=== PATIENT | female | born 1950 | race Caucasian/White ===

== ENCOUNTER 2021-11-30 09:39 | Inpatient (IN) ==
[2021-11-30] MEDS ORDERED: IOPAMIDOL 100 ML BOTTLE IV ONE (09:40)
[2021-11-30] MEDS ORDERED: ONDANSETRON 4 MG/2 ML VIAL IV ONE ×2 (10:03→11:07)
[2021-11-30] MEDS ORDERED: morphine 4 MG/ML VIAL IV ONE ×3 (10:03→13:45)
--- NOTE | 2021-11-30 10:03 | Emergency Department Note ---
HPI General Chief complaint: Abdominal Pain Stated complaint: pain in left upper abd, recent dx w/ cancer. Time Seen by Provider: 11/30/21 10:03 Source: patient Mode of arrival: ambulatory Limitations: no limitations History of Present Illness HPI Narrative: 71-year-old female with past medical history of COPD presenting with dyspnea and abdominal pain. Patient was seen in the ED yesterday after she had a few days of nonproductive cough, fatigue, and shortness of breath. She had a chest x-ray which showed possible hilar right lung mass but no significant infiltrate. COVID and influenza test were negative. Vital signs are stable and she was discharged home. She returns today because she has been having some intermittent abdominal pain in the left upper quadrant that occasionally radiates into her right upper quadrant. Patient does have a history of cholecystectomy and states she was hospitalized after the cholecystectomy because she had a subsequent bile leak. Denies vomiting, fever, dysuria, he maturia, or melena. Denies sick contacts or other complaints. Related Data Home Medications Medication Instructions Recorded Confirmed omeprazole magnesium 20 mg 20 mg PO QDAY tab 07/07/17 11/30/21 tablet,delayed release (Prilosec OTC) melatonin 3 mg PO HS 10/03/21 11/30/21 omega-3 fatty acids [Fish Oil] 1 tab PO QDAY 10/03/21 11/30/21 Previous Rx's Medication Instructions Recorded albuterol sulfate 90 mcg/actuation 2 puff INHALATION .q4-6h PRN #8.5 g 04/27/21 aerosol inhaler (ProAir HFA) benzonatate 100 mg capsule 100 mg PO BID PRN #15 cap 11/29/21 Allergies Allergy/AdvReac Type Severity Reaction Status Date / Time atorvastatin [From Lipitor] AdvReac Mild Muscle Pain Verified 11/30/21 09:43 clonidine [From Catapres] AdvReac Mild Other Verified 11/30/21 09:43 Medroxyprogesterone AdvReac Mild Gastrointestinal Verified 11/30/21 09:43 [From Provera] Upset Review of Systems ROS ROS Narrative: Narrative: Constitutional: Reports chills; Denies fever Eyes: Denies vision change ENT ED: Denies throat pain Cardiovascular: Denies chest pain or palpitations Respiratory: Reports shortness of breath and cough Gastrointestinal: Reports abdominal pain and nausea; Denies vomiting, diarrhea or melena Genitourinary: Denies dysuria or hematuria Musculoskeletal: Denies back pain Integumentary: Denies rash or lesions Neurological: Denies headache Psychiatric: Denies anxiety Endocrine: Reports fatigue Hematological/Lymphatic: Denies easy bruising PFSH Narrative Patient History Narrative: Narrative: Medical/Surgical/Family History All Active Problems (Updated 11/30/21 @ 15:40 by Gerardo Forrester MD) Lactic acidosis (Acute) Emphysema lung (Acute) Acute hypoxemic respiratory failure (Acute) Right lower lobe pneumonia (Acute) Sepsis (Acute) Mass of right lung (Acute) Pneumonia (Acute) Hypoxia (Acute) Viral sinusitis (Acute) Lung nodule < 6cm on CT (Acute) COPD (chronic obstructive pulmonary disease) (Acute) URI (upper respiratory infection) (Acute) Primary insomnia (Acute) Raynauds phenomenon (Acute) GERD (gastroesophageal reflux disease) (Acute) Cellulitis (Acute) Costalchondritis (Acute) Community acquired pneumonia (Acute) UTI (urinary tract infection) (Acute) Bronchitis, acute (Acute) Chronic leukopenia (Chronic) Influenza (Acute) Imbalance (Acute) Encounter for Health Maintenance Examination in Adult (Chronic) History of laparoscopy (Acute 09/30/83) History of esophagogastroduodenoscopy (Acute 10/03/12) History of ectopic (Acute) History of colonoscopy (Acute 10/03/12) History of cholecystectomy (Acute 04/29/00) Sjogren's syndrome (Chronic) Multiple closed 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 10/03/12 EGD--Dr. Bell--Stomach biopsy showing 2 fundic gland polyps; chronic mild gastritis; no helicobacter organisms identified. Encounter for Health Maintenance Examination in Adult Gilbert's syndrome Chronically mildly elevated bilirubin, ,probably secondary to Gilbert's. History of colonic polyps (05/07/10) 05/07/10--hyperplastic polyp; -Dr. Bell (10-year sequence) Hyperlipidemia 03/16/10--Red Yeast Rice trial--discontinued 09/01/10 --wishes to avoid statins Influenza Labyrinthine disorder Episode of labyrinthine vertigo lasting several weeks. Leukocytopenia Chronic leukopenia w/normal cell lines otherwise. Normal differential. Distant past negative bone marrow. Low back pain (05/21/13) Lung disease Chest x-ray 04/23 ER right hilar mass; F/u chest x-ray 05/24 resolved Multiple closed pelvic fractures with disruption of pelvic havasupai 02/20 Pelvic fracture, CT 02/20. Pin removed 07/24--Dr. Burciaga. Bilateral sacral fractures w/sacral screw on the right; superior & inferior rami fractures. Postmenopausal related mood disorder Mild menopausal sxs. D&C & cervical biopsy--squamous metaplasia & condyloma--Dr. Adair (last mammogram 02/2010) Sjogren's syndrome 12/20 Positive Sjogren's antibody 12/20--on Restasis for dry eyes & trying to do good oral care; no other secondary features of Sjogren's. Upper respiratory infection w/ bronchitis Upper respiratory tract infection w/ bronchitis Surgical History History of cholecystectomy (04/29/00) 04/29/00--laparoscopic cholecystectomy; developed bile leak--treated twice, then ERCP w/papillotomy & stent placed; developed bile peritonitis & hospitalization X 1 month. ERCP 04/04/01--some mild residual 2 cm long stenosis of common hepatic duct; some mild fusiform ectasia of several intrahepatic ducts; no filling defects. ERCP 07/06/01--no evidence of recurrent common hepatic duct stricture. Abdominal US 02/22/03--normal. Abdominal CT 05/27--dil intrahepatic ducts,fatty liver History of colonoscopy (10/03/12) nonulcer dyspepsia History of ectopic Removal 1976 Laparotomy--ectopic History of esophagogastroduodenoscopy (10/03/12) 10/03/12 EGD--Dr. Bell--Stomach biopsy showing 2 fundic gland polyps; chronic mild gastritis; no helicobacter organisms identified. History of laparoscopy (09/30/83) Laparoscopy--lysis of right ovarian adhesions--Dr. Adair Family History Mother Heart failure, Onset Age: 80 Cerebrovascular accident, Onset Age: 80 Social History Smoking Status: Never smoker Alcohol Intake Frequency: holiday/special occasion only Substance Use: does not use Exam Narrative Narrative: Narrative: General Limitations: no limitations General appearance: Present alert and other (appears uncomfortable) Head Head: Present atraumatic and normocephalic Eye Eye: Present normal appearance, PERRL and EOMI; Absent scleral icterus or conjunctival injection ENT ENT: Present mucous membranes moist Neck Neck: Present normal inspection, full ROM and trachea midline; Absent meningismus or lymphadenopathy Chest Chest: Present symmetric chest wall rise Respiratory Respiratory: Present respiratory distress (mild) and other (Coarse breath sounds bilaterally); Absent wheezes, stridor, accessory muscle use or prolonged expiratory phase Cardiovascular Cardiovascular: Present normal rhythm and tachycardia; Absent systolic murmur or diastolic murmur Adbominal Abdominal: Present soft and tenderness (mild LUQ TTP); Absent distention, guard ing, rebound, rigidity, organomegaly or mass Extremities Extremities: Present normal inspection; Absent pretibial edema Back Back: Absent CVA tenderness (R), CVA tenderness (L) or spinous process tender ness Neurological Neurological: Present alert, oriented X3 and CN II-XII intact; Absent motor sensory deficit Psychiatric Psychiatric: Present normal affect and normal mood Skin Skin: Present warm (WNL) and dry Course Vital Signs Vital signs: Vital Signs Temperature 101.2 F H 11/30/21 09:40 Pulse Rate 117 H 11/30/21 09:40 Respiratory Rate 28 H 11/30/21 09:40 Blood Pressure 153/79 11/30/21 09:40 Pulse Oximetry (%) 94 11/30/21 09:40 Temperature 99.8 F H 11/30/21 13:41 Pulse Rate 78 11/30/21 15:30 Respiratory Rate 24 H 11/30/21 15:30 Blood Pressure 118/73 11/30/21 15:30 Pulse Oximetry (%) 97 05/16/22 15:30 MDM MDM Narrative Medical decision making narrative: 71-year-old female presenting with abdominal pain and dyspnea. On arrival to the ED she was tachycardic, febrile, and hypoxic to 88% on room air. She was placed on O2 via nasal cannula and a 30 mg/kg normal saline bolus was ordered. Concern for sepsis. No hypotension. Lactate mildly elevated at 2.8. She was given morphine, Zofran, and Tylenol with improvement in her abdominal pain. Blood cultures sent and she was given Zosyn 3.375g and vancomycin 1g IV for presumed pneumonia. CT abdomen shows patchy infiltrates in both lower lobes of the lung as well as known cholecystectomy changes with dilation of the intrahepatic, common hepatic, and common bile ducts. CT chest obtained which shows moderate consolidated alveolar infiltrates in the right upper lobe, right middle lobe, right lower lobe as well as the left upper lobe and left lower lobe. Bilateral hilar and mediastinal lymph nodes present. Given these findings and her hypoxia, will admit for pneumonia with antibiotic treatment and further management. Patient endorsed to Dr. Forrester for admission. Lab Data Lab results reviewed: Yes I reviewed the patient's lab results. Result diagrams: 11/30/21 10:00 11/30/21 10:19 Labs: Lab Results 11/30/21 11/30/21 11/30/21 Range/Units 10:00 10:02 10:03 WBC 9.8 (4.5-11.0) K/mcL RBC 4.87 (3.59-5.38) M/mcL Hgb 14.5 (11.2-15.7) g/dL Hct 43.9 (34.1-44.9) % POC Hct 47.0 (36-48) MCV 90.1 (80.0-100.0) fL MCH 29.8 (26.0-34.0) pg MCHC 33.0 (31.0-36.0) g/dL RDW 13.1 (11.5-14.5) % Plt Count 212 (140-440) K/mcL MPV 10.6 H (7.4-10.4) fL Seg Neutrophils % 72 (38-78) % Band Neutrophils % 6 (0-10) % Lymphocytes % 13 L (15-49) % Monocytes % (Manual) 9 (1-12) % Platelet Estimate Normal (Normal) RBC Morphology Normal (Normal) POC VBG pH 7.37 (7.32-7.42) POC VBG pCO2 at Temp 42.3 (41-51) POC VBG pO2 32 (25-40) POC VBG HCO3 24.6 (24-28) POC VBG Total CO2 26.0 (25-29) POC Venous O2 Sat 60.0 (40-70) POC VBG Base Excess -1.0 (-2-2) VBG Lactic Acid (0.5-2.0) mmol/L POC Sodium 130 L (133-145) Sodium (133-145) mmol/L POC Potassium 3.8 (3.3-5.1) Potassium (3.3-5.1) mmol/L POC Chloride 96 (96-108) Chloride (96-108) mmol/L Carbon Dioxide (22-30) mmol/L POC Total CO2 24.0 (22-30) Anion Gap (8.0-16.0) POC BUN 19 (6-20) BUN (8-23) mg/dL Creatinine (0.6-1.1) mg/dL POC Creatinine 0.9 (0.6-1.2) GFR Calculation Glucose (70-105) mg/dL POC Glucose 110 H (70-105) POC Venous Lactate 2.8 H (0.5-2) Calcium (8.6-10.4) mg/dL POC WB Ioniz Calcium 1.14 L (1.16-1.32) Total Bilirubin (0.1-1.0) mg/dL AST (<32) U/L ALT (<40) U/L Alkaline Phosphatase (39-117) U/L Total Protein (5.9-8.4) gm/dL Albumin (3.2-5.2) gm/dL Globulin (2.2-3.7) gm/dL Albumin/Globulin Ratio (1.0-2.3) Urine Color Urine Appearance (Clear) Urine pH (5.0-9.0) Urine Protein (Negative) mg/dL Urine Glucose (UA) (Negative) mg/dL Urine Ketones (Negative) mg/dL Urine Occult Blood (Negative) mg/dL Urine Nitrate (Negative) Urine Bilirubin (Negative) mg/dL Urine Urobilinogen mg/dL Ur Leukocyte Esterase (Negative) /uL Urine RBC (0-3) /hpf Urine WBC (0-4) /hpf Ur Squamous Epith Cells (0-4) /hpf Urine Bacteria (0) /hpf Urine Mucus (None) /hpf Ur Culture Indicated? 11/30/21 11/30/21 Range/Units 10:19 12:49 WBC (4.5-11.0) K/mcL RBC (3.59-5.38) M/mcL Hgb (11.2-15.7) g/dL Hct (34.1-44.9) % POC Hct (36-48) MCV (80.0-100.0) fL MCH (26.0-34.0) pg MCHC (31.0-36.0) g/dL RDW (11.5-14.5) % Plt Count (140-440) K/mcL MPV (7.4-10.4) fL Seg Neutrophils % (38-78) % Band Neutrophils % (0-10) % Lymphocytes % (15-49) % Monocytes % (Manual) (1-12) % Platelet Estimate (Normal) RBC Morphology (Normal) POC VBG pH (7.32-7.42) POC VBG pCO2 at Temp (41-51) POC VBG pO2 (25-40) POC VBG HCO3 (24-28) POC VBG Total CO2 (25-29) POC Venous O2 Sat (40-70) POC VBG Base Excess (-2-2) VBG Lactic Acid 1.7 (0.5-2.0) mmol/L POC Sodium (133-145) Sodium 129 L (133-145) mmol/L POC Potassium (3.3-5.1) Potassium 3.7 (3.3-5.1) mmol/L POC Chloride (96-108) Chloride 92 L (96-108) mmol/L Carbon Dioxide 20 L (22-30) mmol/L POC Total CO2 (22-30) Anion Gap 17.0 H (8.0-16.0) POC BUN (6-20) BUN 16 (8-23) mg/dL Creatinine 0.9 (0.6-1.1) mg/dL POC Creatinine (0.6-1.2) GFR Calculation 63 Glucose 99 (70-105) mg/dL POC Glucose (70-105) POC Venous Lactate (0.5-2) Calcium 9.9 (8.6-10.4) mg/dL POC WB Ioniz Calcium (1.16-1.32) Total Bilirubin 1.4 H (0.1-1.0) mg/dL AST 22 (<32) U/L ALT 15 (<40) U/L Alkaline Phosphatase 136 H (39-117) U/L Total Protein 8.5 H (5.9-8.4) gm/dL Albumin 3.8 (3.2-5.2) gm/dL Globulin 4.7 H (2.2-3.7) gm/dL Albumin/Globulin Ratio 0.8 L (1.0-2.3) Urine Color Yellow Urine Appearance Clear (Clear) Urine pH 6.0 (5.0-9.0) Urine Protein 30 A (Negative) mg/dL Urine Glucose (UA) Negative (Negative) mg/dL Urine Ketones 20 A (Negative) mg/dL Urine Occult Blood 0.03 (Negative) mg/dL Urine Nitrate Negative (Negative) Urine Bilirubin Negative (Negative) mg/dL Urine Urobilinogen Negative mg/dL Ur Leukocyte Esterase Negative (Negative) /uL Urine RBC 3 (0-3) /hpf Urine WBC 2 (0-4) /hpf Ur Squamous Epith Cells < 1 (0-4) /hpf Urine Bacteria None (0) /hpf Urine Mucus Few A (None) /hpf Ur Culture Indicated? No Radiology Data Radiology results reviewed: Yes I reviewed the patient's radiology results. Radiology results narrative: Ordering Physician:David Birch M.D. Date of Service:11/30/21 Procedure(s):CT abdomen pelvis w con CLINICAL INFORMATION: Left upper quadrant pain and fever COMPARISON: 05/22/2010 TECHNIQUE: 80 cc of Isovue-370 were injected intravenously, and 60 seconds later, 0.625 mm helical slices were obtained from the mid heart through the subtrochanteric regions. Following reconstruction, 2.5 mm sagittal, coronal and axial reformatted images were processed and reviewed at bone, lung and soft tissue windows. Five minutes later, 0.625 mm helical slices were obtained from the mid heart through the kidneys and viewed at soft tissue windows.The exam was performed using radiation dose optimization techniques including, but not limited to, automated exposure control, adjustment of the mA and/or kV according to patient size and use of iterative reconstruction technique. FINDINGS: The lung showed small right pleural effusion with moderate patchy infiltrate in the posterior right lower lobe. There is also a small patchy infiltrate in the posterior left lower lobe. All findings are new from the previous exam. The visualized heart is mildly enlarged. Abdominal images show mild fatty change within the liver. Gallbladder is surgically absent. There is moderate dilatation of the intrahepatic common hepatic and common bile ducts which has increased since the comparison exam 12 years ago. Common bile duct is 15 mm in diameter. Interestingly, there is a large number of intraductal calcifications have developed within the anterior segment right hepatic lobe ducts with atrophy in the adjacent hepatic parenchyma. Both kidneys, adrenal glands, spleen, pancreas and aorta, including aortic branches are normal in size configuration and attenuation without focal lesion. There is no free air, free fluid no adenopathy Pelvic images show urinary bladder is normal.Uterus is normal postmenopausal size-6 x 2.5 cm. There is moderate enlargement of the bilateral periuterine and paraovarian venous plexus with congestion both ovarian veins. The stomach, small bowel appendix region and large bowel are unremarkable. Moderate colonic stool noted. Bone windows show no focal osseous lesion. IMPRESSION: Moderate dilatation of the intrahepatic, common hepatic and common bile ducts which show only slight progression from the remote study 12 years ago. Patient likely has post cholecystectomy papillary stenosis. Multiple calcifications confined to the anterior segment right hepatic duct with associated atrophy in the adjacent soft tissues. This is likely stigmata of trauma or remote infection. Mucinous cholangiocarcinoma is possible, but less likely. Suggest gastroneurology referral for ERCP/papillotomy also a possibly tissue sampling of the anterior segment of the right hepatic lobe. Moderate colonic stool. Small right pleural effusion and moderate patchy infiltrate right lower lobe. Smaller patchy left lower lobe. Consider aspiration or infection. Marked enlargement of the paraovarian periuterine venous plexus. Patient is at risk for pelvic congestion syndrome. Please correlate with chronic or intermittent pelvic pain. Interpreted and Authenticated by: Gabo Huston 11/30/21 Ordering Physician:David Birch M.D. Date of Service:11/30/21 Procedure(s):CT chest wo [facility] CLINICAL INFORMATION: Hypoxia and fever COMPARISON: Chest CT 06/20/2019 TECHNIQUE: 0.625 mm axial slices were obtained from the lung apices through the bases without intravenous contrast. 2.5 mm Sagittal, coronal and axial reformatted images were processed and reviewed at bone, lung and soft tissue windows. 7 mm axial MIP images were also reconstructed to optimize pulmonary nodule detection.The exam was performed using radiation dose optimization techniques including, but not limited to, automated exposure control, adjustment of the mA and/or kV according to patient size and use of iterative reconstruction technique. FINDINGS: Pulmonary parenchymal windows show moderate consolidated alveolar infiltrates in the anterior and posterior segments of the right upper lobe and the right middle lobe. Moderate patchy infiltrate noted in the peripheral right lower lobe and smaller patchy infiltrates in the peripheral left lower lobe and posterior segment left upper lobe. Small right pleural effusion noted. Mediastinal windows show the heart is borderline enlarged with scattered calcific plaque seen in the coronary arteries. The noncontrasted thoracic aorta and pulmonary arteries are normal diameter. Mildly enlarged lymph nodes in the hilar and lower mediastinal region are new from the previous exam. Findings are compatible with benign reactive adenopathy related to infection. Multinodular adenomatous thyroid unchanged. Esophagus is grossly normal. Bone windows show mild chronic wedging midthoracic vertebral bodies. IMPRESSION: 1. Moderate consolidated alveolar infiltrates the anterior/ posterior segments of the right upper lobe and medial segment right middle lobe with moderate patchy infiltrate in the peripheral right lower lobe with smaller patchy infiltrate in the posterior left upper lobe and the peripheral left lower lobe. Small right pleural effusion noted. Findings most compatible with aspiration or infection. 2. Mildly enlarged lower mediastinal and bilateral hilar lymph nodes compatible benign reactive adenopathy related to infection. 3. Mild underlying centrilobular emphysema stable Interpreted and Authenticated by: Gabo Huston 11/30/21 Discharge Plan Patient/Caregiver Discharge Instructions Pt seen by [employer]/PA only: No Clinical Impression: Pneumonia, Hypoxia Patient Disposition: Xfer As Inpt ([facility] Condition: Fair Follow up with: Gabo El DO [Primary Care Provider] - Prescriptions: No Action omeprazole magnesium [Prilosec OTC] 20 mg tablet,delayed release (DR/EC) 20 mg PO QDAY 0RF albuterol sulfate [ProAir HFA] 90 mcg/actuation HFA aerosol inhaler 2 puff inhalation .q4-6h PRN (Reason: cough, shortness of breath, wheezing) Qty: 8.5 0RF Rx Instructions: administer with spacer melatonin 3 mg PO HS 0RF omega-3 fatty acids [Fish Oil] 1 tab PO QDAY 0RF benzonatate 100 mg capsule 100 mg PO BID PRN (Reason: cough) Qty: 15 0RF
[2021-11-30 10:07] LABS: POC Calcium, Ionized 1.14 (1.16-1.32); POC Creatinine 0.9 (0.6-1.2); POC Potassium 3.8 (3.3-5.1)
[2021-11-30] MEDS ORDERED: 0.9 % SODIUM CHLORIDE 900 ML IV ONE (10:20)
[2021-11-30] MEDS ORDERED: 0.9 % SODIUM CHLORIDE 1,000 ML IV ONE (10:21)
[2021-11-30] MEDS ORDERED: ACETAMINOPHEN 325 MG TABLET PO ONE (11:19)
[2021-11-30] MEDS ORDERED: PIPERACILLIN SODIUM/TAZOBACTAM 3.375 GM in DEXTROSE 5% IN WATER 50 ML IV ONE (11:19)
[2021-11-30] MEDS ORDERED: VANCOMYCIN 1,000 MG in 0.9 % SODIUM CHLORIDE 250 ML IV ONE (11:19)
[2021-11-30 11:23] LABS: Hematocrit 43.9 % (34.1-44.9); Hemoglobin 14.5 g/dL (11.2-15.7); Mean Cell Volume 90.1 fL (80.0-100.0); Mean Platelet Volume 10.6 fL (7.4-10.4); Platelet Count 212 K/mcL (140-440); RBC 4.87 M/mcL (3.59-5.38); Red Cell Distribution Width 13.1 % (11.5-14.5); WBC 9.8 K/mcL (4.5-11.0)
[2021-11-30 11:52] LABS: ALT/SGPT 15 U/L (<40); AST/SGOT 22 U/L (<32); Albumin 3.8 gm/dL (3.2-5.2); Albumin/Globulin Ratio 0.8 (1.0-2.3); Alkaline Phosphatase 136 U/L (39-117); Bilirubin,Total 1.4 mg/dL (0.1-1.0); Blood Urea Nitrogen 16 mg/dL (8-23); Calcium 9.9 mg/dL (8.6-10.4); Carbon Dioxide 20 mmol/L (22-30); Chloride 92 mmol/L (96-108); Globulin 4.7 gm/dL (2.2-3.7); Glomerular Filtration Rate 63; Glucose 99 mg/dL (70-105)
--- NOTE | 2021-11-30 12:02 | Cat Scan Report ---
CLINICAL INFORMATION: Left upper quadrant pain and fever COMPARISON: 05/22/2010 TECHNIQUE: 80 cc of Isovue-370 were injected intravenously, and 60 seconds later, 0.625 mm helical slices were obtained from the mid heart through the subtrochanteric regions. Following reconstruction, 2.5 mm sagittal, coronal and axial reformatted images were processed and reviewed at bone, lung and soft tissue windows. Five minutes later, 0.625 mm helical slices were obtained from the mid heart through the kidneys and viewed at soft tissue windows.The exam was performed using radiation dose optimization techniques including, but not limited to, automated exposure control, adjustment of the mA and/or kV according to patient size and use of iterative reconstruction technique. FINDINGS: The lung showed small right pleural effusion with moderate patchy infiltrate in the posterior right lower lobe. There is also a small patchy infiltrate in the posterior left lower lobe. All findings are new from the previous exam. The visualized heart is mildly enlarged. Abdominal images show mild fatty change within the liver. Gallbladder is surgically absent. There is moderate dilatation of the intrahepatic common hepatic and common bile ducts which has increased since the comparison exam 12 years ago. Common bile duct is 15 mm in diameter. Interestingly, there is a large number of intraductal calcifications have developed within the anterior segment right hepatic lobe ducts with atrophy in the adjacent hepatic parenchyma. Both kidneys, adrenal glands, spleen, pancreas and aorta, including aortic branches are normal in size configuration and attenuation without focal lesion. There is no free air, free fluid no adenopathy Pelvic images show urinary bladder is normal.Uterus is normal postmenopausal size-6 x 2.5 cm. There is moderate enlargement of the bilateral periuterine and paraovarian venous plexus with congestion both ovarian veins. The stomach, small bowel appendix region and large bowel are unremarkable. Moderate colonic stool noted. Bone windows show no focal osseous lesion. IMPRESSION: Moderate dilatation of the intrahepatic, common hepatic and common bile ducts which show only slight progression from the remote study 12 years ago. Patient likely has post cholecystectomy papillary stenosis. Multiple calcifications confined to the anterior segment right hepatic duct with associated atrophy in the adjacent soft tissues. This is likely stigmata of trauma or remote infection. Mucinous cholangiocarcinoma is possible, but less likely. Suggest gastroneurology referral for ERCP/papillotomy also a possibly tissue sampling of the anterior segment of the right hepatic lobe. Moderate colonic stool. Small right pleural effusion and moderate patchy infiltrate right lower lobe. Smaller patchy left lower lobe. Consider aspiration or infection. Marked enlargement of the paraovarian periuterine venous plexus. Patient is at risk for pelvic congestion syndrome. Please correlate with chronic or intermittent pelvic pain. Interpreted and Authenticated by: Gabo Huston 11/30/21
[2021-11-30 12:25] LABS: Band Neutrophils % 6 % (0-10); Lymphocytes % 13 % (15-49); Monocytes % (Manual) 9 % (1-12); Platelet Estimate NORMAL (Normal); RBC Morphology NORMAL (Normal); Segmented Neutrophils % 72 % (38-78)
[2021-11-30 14:08] LABS: Appearance,Urine CLEAR (Clear); Bilirubin,Urine Negative (Negative); Color,Urine YELLOW; Culture Indicated,Urine No; Glucose,Urine (UA) Negative (Negative); Ketones,Urine 20 mg/dL (Negative); Leukocyte Esterase,Urine Negative /uL (Negative); Mucus,Urine FEW /hpf; Nitrate,Urine Negative (Negative); Protein,Urine 30 mg/dL (Negative); Urine Blood 0.03 mg/dL (Negative); Urine RBC 3 /hpf (0-3); Urine Squamous Epithelial Cell < 1 /hpf (0-4); Urine WBC 2 /hpf (0-4); Urobilinogen,Urine Negative
[2021-11-30] MEDS ORDERED: oxyCODONE HCL 5 MG TABLET PO PRN (14:55)
[2021-11-30] MEDS ORDERED: ONDANSETRON 4 MG/2 ML VIAL IV PRN (14:55)
--- NOTE | 2021-11-30 15:02 | Cat Scan Report ---
CLINICAL INFORMATION: Hypoxia and fever COMPARISON: Chest CT 06/20/2019 TECHNIQUE: 0.625 mm axial slices were obtained from the lung apices through the bases without intravenous contrast. 2.5 mm Sagittal, coronal and axial reformatted images were processed and reviewed at bone, lung and soft tissue windows. 7 mm axial MIP images were also reconstructed to optimize pulmonary nodule detection.The exam was performed using radiation dose optimization techniques including, but not limited to, automated exposure control, adjustment of the mA and/or kV according to patient size and use of iterative reconstruction technique. FINDINGS: Pulmonary parenchymal windows show moderate consolidated alveolar infiltrates in the anterior and posterior segments of the right upper lobe and the right middle lobe. Moderate patchy infiltrate noted in the peripheral right lower lobe and smaller patchy infiltrates in the peripheral left lower lobe and posterior segment left upper lobe. Small right pleural effusion noted. Mediastinal windows show the heart is borderline enlarged with scattered calcific plaque seen in the coronary arteries. The noncontrasted thoracic aorta and pulmonary arteries are normal diameter. Mildly enlarged lymph nodes in the hilar and lower mediastinal region are new from the previous exam. Findings are compatible with benign reactive adenopathy related to infection. Multinodular adenomatous thyroid unchanged. Esophagus is grossly normal. Bone windows show mild chronic wedging midthoracic vertebral bodies. IMPRESSION: 1. Moderate consolidated alveolar infiltrates the anterior/ posterior segments of the right upper lobe and medial segment right middle lobe with moderate patchy infiltrate in the peripheral right lower lobe with smaller patchy infiltrate in the posterior left upper lobe and the peripheral left lower lobe. Small right pleural effusion noted. Findings most compatible with aspiration or infection. 2. Mildly enlarged lower mediastinal and bilateral hilar lymph nodes compatible benign reactive adenopathy related to infection. 3. Mild underlying centrilobular emphysema stable Interpreted and Authenticated by: Gabo Huston 11/30/21
--- NOTE | 2021-11-30 15:41 | Internal Med History&Physical ---
HPI History of Present Illness Patient information: Note initiated : 11/30/21 at 3:32 pm Service Date, if different from initiated Date: [as above] Patient: Erica Calloway a 71 y/o F admitted on for pain in left upper abd, recent dx w/ cancer.. Chief Complaint: [SOB] Chief complaint: SOB, malaise History of present illness: Ms. Calloway is a 71 year old F with a past medical history significant for Sjogren's disease, insomnia, and possible obstructive lung disease who presents to the hospital with progressive dyspnea. The patient states that she has been feeling unwell since last Tuesday. She is normally quite active, lives in apartment, and does yoga. She had actually presented to the ER yesterday and was discharged home. She returns today in a worsening condition and was found to be febrile with temp of 103, tachycardic with a heart rate of 102, respirate of 27, blood pressure of 125/69. Her O2 sat was 97% on 2 L of supplemental O2. Labs revealed a normal white blood cell count of 9.8, her lactic acid was elevated at 2.8, sodium was 129, and her creatinine was 0.9. SARS COVID-19 was negative. Blood cultures are pending. CT chest reveals moderate consolidated infiltrates in the anterior and posterior segments of the right upper lobe and medial segment of the right middle lobe with moderate patchy infiltrate in the peripheral right lower lobe as well. Small right pleural effusion was noted. She was also found to have hilar lymphadenopathy. There is also mild underlying centrilobular emphysema. The hospital service was asked admit the patient for further management evaluation of her sepsis in the setting of community-acquired pneumonia. Review of Systems All systems: reviewed and no additional remarkable complaints except as stated Constitutional Constitutional: Present as per HPI EENT Eyes: Present as per HPI; Absent blurry vision Cardiovascular Cardiovascular: Present as per HPI; Absent chest pain, dyspnea, dyspnea on exertion, leg edema or palpatations Respiratory Respiratory: Present as per HPI, cough, dyspnea and dyspnea on exertion; Absent wheezing or stridor Gastrointestinal Gastrointestinal: Present as per HPI; Absent abdominal pain, diarrhea, dysphagia, hematemesis, melena, nausea or vomiting Musculoskeletal Musculoskeletal: Present as per HPI; Absent joint swelling, limited range of motion, muscle cramps, muscle weakness or myalgias Integumentary Integumentary: Present as per HPI; Absent erythema, new lesions, rash or wounds Neurological Neurological: Present as per HPI; Absent abnormal gait, behavioral changes, focal weakness, headache(s), loss of vision, numbness, sensory deficit or syncope Endocrine Endocrine: Absent change in body appearance, fatigue or heat intolerance Hematologic/Lymphatic Hematologic/Lymphatic: Present as per HPI PFSH PFSH All Active Problems (Updated 11/30/21 @ 15:40 by Gerardo Forrester MD) Lactic acidosis (Acute) Emphysema lung (Acute) Acute hypoxemic respiratory failure (Acute) Right lower lobe pneumonia (Acute) Sepsis (Acute) Mass of right lung (Acute) Pneumonia (Acute) Hypoxia (Acute) Viral sinusitis (Acute) Lung nodule < 6cm on CT (Acute) COPD (chronic obstructive pulmonary disease) (Acute) URI (upper respiratory infection) (Acute) Primary insomnia (Acute) Raynauds phenomenon (Acute) GERD (gastroesophageal reflux disease) (Acute) Cellulitis (Acute) Costalchondritis (Acute) Community acquired pneumonia (Acute) UTI (urinary tract infection) (Acute) Bronchitis, acute (Acute) Chronic leukopenia (Chronic) Influenza (Acute) Imbalance (Acute) Encounter for Health Maintenance Examination in Adult (Chronic) History of laparoscopy (Acute 09/30/83) History of esophagogastroduodenoscopy (Acute 10/03/12) History of ectopic (Acute) History of colonoscopy (Acute 10/03/12) History of cholecystectomy (Acute 04/29/00) Sjogren's syndrome (Chronic) 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 10/03/12 EGD--Dr. Bell--Stomach biopsy showing 2 fundic gland polyps; chronic mild gastritis; no helicobacter organisms identified. Encounter for Health Maintenance Examination in Adult Gilbert's syndrome Chronically mildly elevated bilirubin, ,probably secondary to Gilbert's. History of colonic polyps (05/07/10) 05/07/10--hyperplastic polyp; -Dr. Bell (10-year sequence) Hyperlipidemia 03/16/10--Red Yeast Rice trial--discontinued 09/01/10 --wishes to avoid statins Influenza Labyrinthine disorder Episode of labyrinthine vertigo lasting several weeks. Leukocytopenia Chronic leukopenia w/normal cell lines otherwise. Normal differential. Distant past negative bone marrow. Low back pain (05/21/13) Lung disease Chest x-ray 04/23 ER right hilar mass; F/u chest x-ray 05/24 resolved Multiple closed pelvic fractures with disruption of pelvic lummi 02/20 Pelvic fracture, CT 02/20. Pin removed 07/24--Dr. Burciaga. Bilateral sacral fractures w/sacral screw on the right; superior & inferior rami fractures. Postmenopausal related mood disorder Mild menopausal sxs. D&C & cervical biopsy--squamous metaplasia & condyloma--Dr. Adair (last mammogram 02/2010) Sjogren's syndrome 12/20 Positive Sjogren's antibody 12/20--on Restasis for dry eyes & trying to do good oral care; no other secondary features of Sjogren's. Upper respiratory infection w/ bronchitis Upper respiratory tract infection w/ bronchitis Surgical History History of cholecystectomy (04/29/00) 04/29/00--laparoscopic cholecystectomy; developed bile leak--treated twice, then ERCP w/papillotomy & stent placed; developed bile peritonitis & hospitalization X 1 month. ERCP 04/04/01--some mild residual 2 cm long stenosis of common hepatic duct; some mild fusiform ectasia of several intrahepatic ducts; no filling defects. ERCP 07/06/01--no evidence of recurrent common hepatic duct stricture. Abdominal US 02/22/03--normal. Abdominal CT 05/27--dil intrahepatic ducts,fatty liver History of colonoscopy (10/03/12) nonulcer dyspepsia History of ectopic Removal 1976 Laparotomy--ectopic History of esophagogastroduodenoscopy (10/03/12) 10/03/12 EGD--Dr. Bell--Stomach biopsy showing 2 fundic gland polyps; chronic mild gastritis; no helicobacter organisms identified. History of laparoscopy (09/30/83) Laparoscopy--lysis of right ovarian adhesions--Dr. Adair Family History Mother Heart failure, Onset Age: 80 Cerebrovascular accident, Onset Age: 80 Social History household members: alone housing: house lives independently: Yes marital status: occupational status: retired alcohol intake frequency: holiday/special occasion only substance use type: does not use MEDS/ALLERGIES Home Medications and Allergies Home Medications Medication Instructions Recorded Confirmed Type omeprazole magnesium 20 mg 20 mg PO QDAY tab 07/07/17 11/30/21 History tablet,delayed release (Prilosec OTC) albuterol sulfate 90 mcg/actuation 2 puff INHALATION .q4-6h PRN #8.5 g 04/27/21 11/30/21 Rx aerosol inhaler (ProAir HFA) melatonin 3 mg PO HS 10/03/21 11/30/21 History omega-3 fatty acids [Fish Oil] 1 tab PO QDAY 10/03/21 11/30/21 History benzonatate 100 mg capsule 100 mg PO BID PRN #15 cap 11/29/21 11/30/21 Rx Allergies Allergy/AdvReac Type Severity Reaction Status Date / Time atorvastatin [From Lipitor] AdvReac Mild Muscle Pain Verified 11/30/21 09:43 clonidine [From Catapres] AdvReac Mild Other Verified 11/30/21 09:43 Medroxyprogesterone AdvReac Mild Gastrointestinal Verified 11/30/21 09:43 [From Provera] Upset EXAM Constitutional Vitals: Temp Pulse Resp BP Pulse Ox 99.8 F H 74 21 118/71 98 11/30/21 13:41 11/30/21 15:01 11/30/21 15:01 11/30/21 15:01 11/30/21 15:01 General appearance: average body habitus Head Head exam: Present atraumatic, normal inspection and normocephalic Eye Eye exam: Present EOMI, normal appearance and PERRL; Absent conjunctival injection ENT ENT exam: Present normal exam; Absent mucous membranes dry Neck Neck exam: Present full ROM; Absent lymphadenopathy Respiratory Respiratory exam: Present normal respiratory exam, decreased breath sounds and rhonchi; Absent CTAB, respiratory distress or wheezes Cardiovascular Cardiovascular exam: Present normal rate and rhythm and RRR; Absent JVD GI/Abdominal GI/Abdominal exam: Present normal bowel sounds and soft; Absent diminished bowel sounds, distended, guarding, mass, rebound or tenderness Neurological Exam Neurological exam: Present alert, CN II-XII intact and oriented X3 Psychiatric Psychiatric exam: Present normal affect and normal mood Skin Skin exam: Present intact and warm; Absent erythema, pallor, petechiae or rash DATA Data Completed and Pending Labs: Labs from last 24 hours 11/30/21 11/30/21 11/30/21 12:49 10:19 10:03 WBC RBC Hgb Hct POC Hct 47.0 MCV MCH MCHC RDW Plt Count MPV Seg Neutrophils % Band Neutrophils % Lymphocytes % Monocytes % (Manual) Platelet Estimate RBC Morphology POC VBG pH POC VBG pCO2 at Temp POC VBG pO2 POC VBG HCO3 POC VBG Total CO2 POC Venous O2 Sat POC VBG Base Excess VBG Lactic Acid 1.7 POC Sodium 130 L Sodium 129 L POC Potassium 3.8 Potassium 3.7 POC Chloride 96 Chloride 92 L Carbon Dioxide 20 L POC Total CO2 24.0 Anion Gap 17.0 H POC BUN 19 BUN 16 Creatinine 0.9 POC Creatinine 0.9 GFR Calculation 63 Glucose 99 POC Glucose 110 H POC Venous Lactate Calcium 9.9 POC WB Ioniz Calcium 1.14 L Total Bilirubin 1.4 H AST 22 ALT 15 Alkaline Phosphatase 136 H Total Protein 8.5 H Albumin 3.8 Globulin 4.7 H Albumin/Globulin Ratio 0.8 L Urine Color Yellow Urine Appearance Clear Urine pH 6.0 Ur Specific [place] Pending Urine Protein 30 A Urine Glucose (UA) Negative Urine Ketones 20 A Urine Occult Blood 0.03 Urine Nitrate Negative Urine Bilirubin Negative Urine Urobilinogen Negative Ur Leukocyte Esterase Negative Urine RBC 3 Urine WBC 2 Ur Squamous Epith Cells < 1 Urine Bacteria None Urine Mucus Few A Ur Culture Indicated? No 11/30/21 11/30/21 10:02 10:00 WBC 9.8 RBC 4.87 Hgb 14.5 Hct 43.9 POC Hct MCV 90.1 MCH 29.8 MCHC 33.0 RDW 13.1 Plt Count 212 MPV 10.6 H Seg Neutrophils % 72 Band Neutrophils % 6 Lymphocytes % 13 L Monocytes % (Manual) 9 Platelet Estimate Normal RBC Morphology Normal POC VBG pH 7.37 POC VBG pCO2 at Temp 42.3 POC VBG pO2 32 POC VBG HCO3 24.6 POC VBG Total CO2 26.0 POC Venous O2 Sat 60.0 POC VBG Base Excess -1.0 VBG Lactic Acid POC Sodium Sodium POC Potassium Potassium POC Chloride Chloride Carbon Dioxide POC Total CO2 Anion Gap POC BUN BUN Creatinine POC Creatinine GFR Calculation Glucose POC Glucose POC Venous Lactate 2.8 H Calcium POC WB Ioniz Calcium Total Bilirubin AST ALT Alkaline Phosphatase Total Protein Albumin Globulin Albumin/Globulin Ratio Urine Color Urine Appearance Urine pH Ur Specific [place] Urine Protein Urine Glucose (UA) Urine Ketones Urine Occult Blood Urine Nitrate Urine Bilirubin Urine Urobilinogen Ur Leukocyte Esterase Urine RBC Urine WBC Ur Squamous Epith Cells Urine Bacteria Urine Mucus Ur Culture Indicated? A/P Assessment and plan (1) Sepsis: Status: Acute (2) Right lower lobe pneumonia: Status: Acute (3) Acute hypoxemic respiratory failure: Status: Acute (4) Emphysema lung: Status: Acute (5) Lactic acidosis: Status: Acute Narrative A/P Narrative: Yesterday's chest x-ray was concerning for right lung mass which today was confirmed to be an infiltrate. Her presentation today was septic and she will be resuscitated with IV fluids, and started on ceftriaxone/Zithromax. Due to her underlying emphysema, will start duo nebs as well. She will be resuscitated with IV fluids and will follow up with her lactic acid tomorrow morning. She will likely be in the hospital 2 to 3 days. She will be evaluated by physical therapy and Occupational Therapy. Medication reconciliation is pending. Time Spent With Patient Time: Total time spent is greater than 50% in coordination of care (as documented) at patient's floor/unit and/or counseling patient: Total time spent with greater than 50% in coordination of care (as documented) at patient's floor/unit and/or counseling patient:: 50 - 70 minutes
[2021-11-30] MEDS: PIPERACILLIN SODIUM/TAZOBACTAM 3.375 GM in DEXTROSE 5% IN WATER 50 ML IV SCH ×2 (17:37→23:56)
[2021-11-30] MEDS: IPRATROPIUM/ALBUTEROL 3 ML AMPUL.NEB NEB SCH (19:13)
[2021-11-30] MEDS: DOCUSATE SODIUM 100 MG CAPSULE PO SCH (20:14)
[2021-11-30] MEDS: ACETAMINOPHEN 325 MG TABLET PO PRN (20:14)
[2021-11-30] MEDS: SENNOSIDES 1 TABLET PO SCH (20:14)
[2021-11-30] MEDS: LACTATED RINGERS 1,000 ML IV SCH (21:04)
[2021-11-30] MEDS ORDERED: 0.9 % SODIUM CHLORIDE 10 ML SYRINGE IV SCH (22:00)
[2021-11-30] MEDS: 0.9 % SODIUM CHLORIDE 10 ML SYRINGE IV SCH (22:28)
[2021-12-01] MEDS: LACTATED RINGERS 1,000 ML IV SCH (00:45)
[2021-12-01] MEDS: IPRATROPIUM/ALBUTEROL 3 ML AMPUL.NEB NEB SCH ×4 (00:47→19:12)
[2021-12-01] MEDS: PIPERACILLIN SODIUM/TAZOBACTAM 3.375 GM in DEXTROSE 5% IN WATER 50 ML IV SCH ×3 (05:38→17:41)
--- NOTE | 2021-12-01 06:05 | Internal Med Progress Note ---
SUBJECTIVE Subjective Patient information: Note initiated : 12/01/21 at 6:03 am Service Date, if different from initiated Date: [as above] Patient: Erica Calloway 71 y/o F admitted on 11/30/21 for pain in left upper abd, recent dx w/ cancer.. Chief Complaint: SOB Principal diagnosis: Sepsis, SOB Interval history: The patient is resting comfortably in bed, and doing well overall Constitutional Vitals: Vital Signs Temp Pulse Resp BP Pulse Ox 98.1 F 81 20 116/69 97 12/01/21 03:10 12/01/21 03:10 12/01/21 03:10 12/01/21 03:10 12/01/21 03:10 Period Temp Pulse Resp BP Sys/Howard Pulse Ox Last 24 Hr 98.1 F-103.1 F 74-117 20-33 115-160/67-81 90-100 Intake and Output 11/30/21 12/01/21 12/01/21 21:59 05:59 13:59 Intake Total 50 718 Output Total 150 550 Balance -100 168 Weight 67.676 kg Intake & Output: Intake & Output 11/30/21 12/01/21 12/01/21 21:59 05:59 13:59 Intake Total 50 718 Output Total 150 550 Balance -100 168 Weight 67.676 kg Intake: IV 50 418 Lactated Ringers 1,000 ml @ 100 368 mls/hr IV .Q10H [facility] Rx#: [id number] Zosyn 3.375 gm In Dextrose 5% 50 50 in Water 50 ml @ 100 mls/hr IV Q6H [facility] Rx#:[id number] Oral 300 Output: Void Amount 150 550 Other: Feeding Ability Independent Urine Appearance Clear Clear Urine Color Dark Yellow Bright Yellow Urine Odor Normal Head Head exam: Present atraumatic and normal inspection Eye Eye exam: Present normal appearance ENT ENT exam: Present mucous membranes moist, normal exam and normal external ear exam Neck Neck exam: Present normal inspection Respiratory Respiratory exam: Present normal respiratory exam Cardiovascular Cardiovascular exam: Present normal rate and rhythm GI/Abdominal GI/Abdominal exam: Present normal bowel sounds Back Exam Back exam: Present normal inspection Neurological Exam Neurological exam: Present alert and oriented X3 Skin Skin exam: Present intact and warm OBJ DATA Labs CBC & Chem 7: 11/30/21 10:00 11/30/21 10:19 Labs: Abnormal Lab Results 11/30/21 11/30/21 11/30/21 12:49 10:19 10:03 MPV Lymphocytes % POC Sodium 130 L Sodium 129 L Chloride 92 L Carbon Dioxide 20 L Anion Gap 17.0 H POC Glucose 110 H POC Venous Lactate POC WB Ioniz Calcium 1.14 L Total Bilirubin 1.4 H Alkaline Phosphatase 136 H Total Protein 8.5 H Globulin 4.7 H Albumin/Globulin Ratio 0.8 L Urine Protein 30 A Urine Ketones 20 A Urine Mucus Few A 11/30/21 11/30/21 10:02 10:00 MPV 10.6 H Lymphocytes % 13 L POC Sodium Sodium Chloride Carbon Dioxide Anion Gap POC Glucose POC Venous Lactate 2.8 H POC WB Ioniz Calcium Total Bilirubin Alkaline Phosphatase Total Protein Globulin Albumin/Globulin Ratio Urine Protein Urine Ketones Urine Mucus Meds: Medications Acetaminophen (Acetaminophen 325 Mg Tablet) 650 mg PO Q6HP PRN; Protocol PRN Reason: Per Pain Protocol/Fever > 101 Last Admin: 11/30/21 20:14 Dose: 650 mg Documented by: Albuterol/Ipratropium (Ipratropium/Albuterol 3 Ml Ampul.Neb) 3 ml NEB Q6HRT [facility] Last Admin: 12/01/21 00:47 Dose: 3 ml Documented by: Docusate Sodium (Docusate Sodium 100 Mg Capsule) 100 mg PO BID [facility] Last Admin: 11/30/21 20:14 Dose: 100 mg Documented by: Enoxaparin Sodium (Enoxaparin 40 Mg/0.4 Ml Syringe) 40 mg SQ DAILY [facility] Lactated Ringer's (Lactated Ringers) 1,000 mls @ 100 mls/hr IV .Q10H [facility] Last Admin: 12/01/21 00:45 Dose: 100 mls/hr Documented by: Piperacillin Sod/Tazobactam (Sod 3.375 gm/ Dextrose) 50 mls @ 100 mls/hr IV Q6H [facility]; Protocol Last Admin: 12/01/21 05:38 Dose: 100 mls/hr Documented by: Ondansetron HCl (Ondansetron 4 Mg/2 Ml Vial) 4 mg IV Q6HP PRN PRN Reason: Nausea And Vomiting Oxycodone HCl (Oxycodone Hcl 5 Mg Tablet) 5 mg PO Q4HP PRN; Protocol PRN Reason: Per Pain Protocol Senna (Sennosides 1 Tablet) 2 tab PO HS [facility] Last Admin: 11/30/21 20:14 Dose: 2 tab Documented by: Sodium Chloride (0.9 % Sodium Chloride 10 Ml Syringe) 10 ml IV Q8 [facility] Last Admin: 11/30/21 22:28 Dose: Not Given Documented by: A/P Assessment and plan (1) Sepsis: Status: Acute (2) Right lower lobe pneumonia: Status: Acute (3) Acute hypoxemic respiratory failure: Status: Acute (4) Emphysema lung: Status: Acute (5) Lactic acidosis: Status: Acute Narrative A/P Narrative: Yesterday's chest x-ray was concerning for right lung mass which today was confirmed to be an infiltrate. Her presentation today was septic and she will be resuscitated with IV fluids, and started on ceftriaxone/Zithromax. Due to her underlying emphysema, will start duo nebs as well. She will be resuscitated with IV fluids and will follow up with her lactic acid tomorrow morning. She will likely be in the hospital 2 to 3 days. She will be evaluated by physical therapy and Occupational Therapy. Medication reconciliation is pending. 12/01: The patient will continue parenteral abx as above. Ongoing requirement for supplemental O2. Work with PT/OT. Likely will another another 1-2 days in the hospital. Time Spent With Patient Time: Total time spent is greater than 50% in coordination of care (as documented) at patient's floor/unit and/or counseling patient: Total time spent with greater than 50% in coordination of care (as documented) at patient's floor/unit and/or counseling patient:: 25 - 35 minutes QUALITY VTE Deep Vein Thrombosis/Pulmonary Embolism Present on Admission: No
[2021-12-01 06:34] LABS: Basophils # (Auto) 0.03 K/mcL (0.00-0.30); Basophils % (Auto) 0.4 % (0.0-2.0); Eosinophils # (Auto) 0.09 K/mcL (0.00-0.70); Eosinophils % (Auto) 1.2 % (0.0-7.0); Hematocrit 33.8 % (34.1-44.9); Hemoglobin 11.3 g/dL (11.2-15.7); Lymphocytes # (Auto) 0.68 K/mcL (1.50-4.80); Lymphocytes % (Auto) 9.2 % (15.5-49.0); Mean Cell Volume 89.9 fL (80.0-100.0); Mean Corpuscular HGB Conc 33.4 g/dL (31.0-36.0); Mean Platelet Volume 9.5 fL (7.4-10.4); Monocytes # (Auto) 0.84 K/mcL (0.10-0.90); Monocytes % (Auto) 11.3 % (1.0-12.0); Neutrophils % (Auto) 77.9 % (38.0-78.0); Platelet Count 176 K/mcL (140-440); RBC 3.76 M/mcL (3.59-5.38); Red Cell Distribution Width 13.3 % (11.5-14.5); WBC 7.4 K/mcL (4.5-11.0)
[2021-12-01] MEDS: 0.9 % SODIUM CHLORIDE 10 ML SYRINGE IV SCH ×3 (06:51→21:54)
[2021-12-01 07:03] LABS: Blood Urea Nitrogen 13 mg/dL (8-23); Calcium 8.8 mg/dL (8.6-10.4); Carbon Dioxide 21 mmol/L (22-30); Chloride 97 mmol/L (96-108); Glomerular Filtration Rate 86; Glucose 89 mg/dL (70-105)
[2021-12-01] MEDS: ENOXAPARIN 40 MG/0.4 ML SYRINGE SQ SCH (08:09)
[2021-12-01] MEDS: DOCUSATE SODIUM 100 MG CAPSULE PO SCH ×2 (08:10→21:53)
[2021-12-01] MEDS: ACETAMINOPHEN 325 MG TABLET PO PRN ×3 (08:10→22:37)
--- NOTE | 2021-12-01 13:00 | Internal Med Progress Note ---
SUBJECTIVE Subjective Patient information: Note initiated : 12/01/21 at 12:55 pm Service Date, if different from initiated Date: [] Patient: Erica Calloway a 71 y/o F admitted on 11/30/21 for pain in left upper abd, recent dx w/ cancer.. Chief Complaint: [] Principal diagnosis: Sepsis, SOB Interval history: History of present illness: Ms. Calloway is a 71 year old F with a past medical history significant for Sjogren's disease, insomnia, and possible obstructive lung disease who presents to the hospital with progressive dyspnea. The patient states that she has been feeling unwell since last Tuesday. She is normally quite active, lives in apartment, and does yoga. She had actually presented to the ER yesterday and wa s discharged home. She returns today in a worsening condition and was found to be febrile with temp of 103, tachycardic with a heart rate of 102, respirate of 27, blood pressure of 125/69. Her O2 sat was 97% on 2 L of supplemental O2. Labs revealed a normal white blood cell count of 9.8, her lactic acid was elevated at 2.8, sodium was 129, and her creatinine was 0.9. SARS COVID-19 was negative. Blood cultures are pending. CT chest reveals moderate consolidated infiltrates in the anterior and posterior segments of the right upper lobe and medial segment of the right middle lobe with moderate patchy infiltrate in the peripheral right lower lobe as well. Small right pleural effusion was noted. She was also found to have hilar lymphadenopathy. There is also mild underlying centrilobular emphysema. The hospital service was asked admit the patient for further management evaluation of her sepsis in the setting of community-acquired pneumonia. 12/01 Interval history: The patient is resting comfortably in bed, and doing well overall 12/02 Constitutional Vitals: Vital Signs Temp Pulse Resp BP Pulse Ox 98.7 F 92 H 18 133/73 95 12/01/21 07:59 12/01/21 08:22 12/01/21 08:22 12/01/21 07:59 12/01/21 08:22 Period Temp Pulse Resp BP Sys/Howard Pulse Ox Last 24 Hr 98.1 F-103.1 F 74-109 18-24 116-153/67-78 95-99 Intake and Output 05/16/22 05/17/22 05/17/22 21:59 05:59 13:59 Intake Total 50 718 50 Output Total 150 550 200 Balance -100 168 -150 Weight 67.676 kg 67.676 kg Patient Weight 12/02/21 05:59 Weight 67.676 kg Intake & Output: Intake & Output 11/30/21 12/01/21 12/01/21 21:59 05:59 13:59 Intake Total 50 718 50 Output Total 150 550 200 Balance -100 168 -150 Weight 67.676 kg 67.676 kg Intake: IV 50 418 50 Lactated Ringers 1,000 ml @ 100 368 mls/hr IV .Q10H [facility] Rx#: [id number] Zosyn 3.375 gm In Dextrose 5% 50 50 50 in Water 50 ml @ 100 mls/hr IV Q6H [facility] Rx#:[id number] Oral 300 Output: Void Amount 150 550 200 Other: Feeding Ability Independent Urine Appearance Clear Clear Urine Color Dark Yellow Bright Yellow Urine Odor Normal Stool Size Small Stool Consistency Loose # Bowel Movements 1 Exam: General: Alert, Awake, No acute Distress Eyes/N/T: EOMI, Head/Neck: neck supple, CV: RRR, No murmurs, Pulm: b/l, no wheezing/rhonchi/rales Abd: soft, nontender, +BS x4 Ext: no clubbing/cyanosis/edema Neuro: Alert, no focal deficits, moves all extremities, Skin: warm/dry OBJ DATA Labs CBC & Chem 7: 12/01/21 05:49 12/01/21 05:49 Labs: Abnormal Lab Results 12/01/21 12/01/21 11/30/21 05:49 05:49 12:49 Hct 33.8 L MPV Lymph % (Auto) 9.2 L Lymph # (Auto) 0.68 L Lymphocytes % POC Sodium Sodium 128 L Chloride Carbon Dioxide 21 L Anion Gap POC Glucose POC Venous Lactate POC WB Ioniz Calcium Total Bilirubin Alkaline Phosphatase Total Protein Globulin Albumin/Globulin Ratio Urine Protein 30 A Urine Ketones 20 A Urine Mucus Few A 11/30/21 11/30/21 11/30/21 10:19 10:03 10:02 Hct MPV Lymph % (Auto) Lymph # (Auto) Lymphocytes % POC Sodium 130 L Sodium 129 L Chloride 92 L Carbon Dioxide 20 L Anion Gap 17.0 H POC Glucose 110 H POC Venous Lactate 2.8 H POC WB Ioniz Calcium 1.14 L Total Bilirubin 1.4 H Alkaline Phosphatase 136 H Total Protein 8.5 H Globulin 4.7 H Albumin/Globulin Ratio 0.8 L Urine Protein Urine Ketones Urine Mucus 11/30/21 10:00 Hct MPV 10.6 H Lymph % (Auto) Lymph # (Auto) Lymphocytes % 13 L POC Sodium Sodium Chloride Carbon Dioxide Anion Gap POC Glucose POC Venous Lactate POC WB Ioniz Calcium Total Bilirubin Alkaline Phosphatase Total Protein Globulin Albumin/Globulin Ratio Urine Protein Urine Ketones Urine Mucus Meds: Medications Acetaminophen (Acetaminophen 325 Mg Tablet) 650 mg PO Q6HP PRN; Protocol PRN Reason: Per Pain Protocol/Fever > 101 Last Admin: 12/01/21 08:10 Dose: 650 mg Documented by: Albuterol/Ipratropium (Ipratropium/Albuterol 3 Ml Ampul.Neb) 3 ml NEB Q6HRT [facility] Last Admin: 12/01/21 08:22 Dose: 3 ml Documented by: Docusate Sodium (Docusate Sodium 100 Mg Capsule) 100 mg PO BID [facility] Last Admin: 12/01/21 08:10 Dose: 100 mg Documented by: Enoxaparin Sodium (Enoxaparin 40 Mg/0.4 Ml Syringe) 40 mg SQ DAILY [facility] Last Admin: 12/01/21 08:09 Dose: 40 mg Documented by: Piperacillin Sod/Tazobactam (Sod 3.375 gm/ Dextrose) 50 mls @ 100 mls/hr IV Q6H [facility]; Protocol Last Admin: 12/01/21 12:49 Dose: 100 mls/hr Documented by: Ondansetron HCl (Ondansetron 4 Mg/2 Ml Vial) 4 mg IV Q6HP PRN PRN Reason: Nausea And Vomiting Oxycodone HCl (Oxycodone Hcl 5 Mg Tablet) 5 mg PO Q4HP PRN; Protocol PRN Reason: Per Pain Protocol Senna (Sennosides 1 Tablet) 2 tab PO HS [facility] Last Admin: 11/30/21 20:14 Dose: 2 tab Documented by: Sodium Chloride (0.9 % Sodium Chloride 10 Ml Syringe) 10 ml IV Q8 [facility] Last Admin: 12/01/21 06:51 Dose: Not Given Documented by: A/P Narrative A/P Narrative: A: *PNA (RLL): *Sepsis: 2/2 above -With lactic acidosis *Acute hypoxic respiratory failure: -2-3L NC *COPD: *Hyponatremia: *GERD: P: -Ceftriaxone/azithromycin -IVF and follow-up lactate -DuoNebs for COPD -IS/Acapella -Wean O2 as able -Follow-up sodium - -PT/OT -ppx: Lovenox/home PPI Time Spent With Patient Time: Total time spent is greater than 50% in coordination of care (as documented) at patient's floor/unit and/or counseling patient: QUALITY VTE Deep Vein Thrombosis/Pulmonary Embolism Present on Admission: No
[2021-12-01] MEDS ORDERED: LORazepam 1 MG TABLET PO PRN (18:11)
[2021-12-01] MEDS ORDERED: LORazepam 1 MG TABLET ONE (19:07)
[2021-12-01] MEDS: SENNOSIDES 1 TABLET PO SCH (21:53)
[2021-12-02] MEDS: IPRATROPIUM/ALBUTEROL 3 ML AMPUL.NEB NEB SCH ×3 (00:51→13:31)
[2021-12-02] MEDS: PIPERACILLIN SODIUM/TAZOBACTAM 3.375 GM in DEXTROSE 5% IN WATER 50 ML IV SCH ×2 (00:51→06:10)
[2021-12-02] MEDS: 0.9 % SODIUM CHLORIDE 10 ML SYRINGE IV SCH (06:10)
--- NOTE | 2021-12-02 07:07 | Internal Med Progress Note ---
SUBJECTIVE Subjective Patient information: Note initiated : 12/02/21 at 7:05 am Service Date, if different from initiated Date: [] Patient: Erica Calloway a 71 y/o F admitted on 11/30/21 for pain in left upper abd, recent dx w/ cancer.. Chief Complaint: [] Principal diagnosis: Sepsis, SOB Interval history: History of present illness: Ms. Calloway is a 71 year old F with a past medical history significant for Sjogren's disease, insomnia, and possible obstructive lung disease who presents to the hospital with progressive dyspnea. The patient states that she has been feeling unwell since last Tuesday. She is normally quite active, lives in apartment, and does yoga. She had actually presented to the ER yesterday and was discharged home. She returns today in a worsening condition and was found to be febrile with temp of 103, tachycardic with a heart rate of 102, respirate of 27, blood pressure of 125/69. Her O2 sat was 97% on 2 L of supplemental O2. Labs revealed a normal white blood cell count of 9.8, her lactic acid was elevated at 2.8, sodium was 129, and her creatinine was 0.9. SARS COVID-19 was negative. Blood cultures are pending. CT chest reveals moderate consolidated infiltrates in the anterior and posterior segments of the right upper lobe and medial segment of the right middle lobe with moderate patchy infiltrate in the peripheral right lower lobe as well. Small right pleural effusion was noted. She was also found to have hilar lymphadenopathy. There is also mild underlying centrilobular emphysema. The hospital service was asked admit the patient for further management evaluation of her sepsis in the setting of community-acquired pneumonia. 12/01 Interval history: The patient is resting comfortably in bed, and doing well overall 12/02 Patient feeling little bit better. On room air today. No overnight events. Sodium better. Cough and shortness of breath present but improved. Review of Systems: Denies headache/fever/chills/nausea/vomiting/chest or abdominal pain/diarrhea. Otherwise see above. Constitutional Vitals: Vital Signs Temp Pulse Resp BP Pulse Ox 98.7 F 97 H 22 133/80 94 12/02/21 03:34 12/02/21 03:34 12/02/21 03:34 12/02/21 03:34 12/02/21 03:34 Period Temp Pulse Resp BP Sys/Howard Pulse Ox Last 24 Hr 98.5 F-100.9 F 88-109 18-24 117-147/67-84 91-96 Intake and Output 12/01/21 12/02/21 12/02/21 21:59 05:59 13:59 Intake Total 1260 800 50 Output Total 800 550 Balance 460 800 -500 Weight 70.171 kg Intake & Output: Intake & Output 12/01/21 12/02/21 12/02/21 21:59 05:59 13:59 Intake Total 1260 800 50 Output Total 800 550 Balance 460 800 -500 Weight 70.171 kg Intake: IV 100 50 50 Zosyn 3.375 gm In Dextrose 5% 100 50 50 in Water 50 ml @ 100 mls/hr IV Q6H [facility] Rx#:[id number] Oral 1160 750 Output: Urine Catheter Amount 800 Void Amount 550 Other: Meal Dinner Urine Appearance Clear Urine Color Dark Yellow Urine Odor Normal Stool Size Small Stool Color Brown Green Black Stool Consistency Loose Exam: General: Alert, Awake, No acute Distress Eyes/N/T: EOMI, Head/Neck: neck supple, CV: RRR, No murmurs, Pulm: minimal rhonchi, no wheezing Abd: soft, nontender, +BS x4 Ext: no clubbing/cyanosis/edema Neuro: Alert, no focal deficits, moves all extremities, Skin: warm/dry OBJ DATA Labs CBC & Chem 7: 12/01/21 05:49 12/02/21 05:48 Labs: Abnormal Lab Results 12/01/21 12/01/21 11/30/21 05:49 05:49 12:49 Hct 33.8 L MPV Lymph % (Auto) 9.2 L Lymph # (Auto) 0.68 L Lymphocytes % POC Sodium Sodium 128 L Chloride Carbon Dioxide 21 L Anion Gap POC Glucose POC Venous Lactate POC WB Ioniz Calcium Total Bilirubin Alkaline Phosphatase Total Protein Globulin Albumin/Globulin Ratio Urine Protein 30 A Urine Ketones 20 A Urine Mucus Few A 11/30/21 11/30/21 11/30/21 10:19 10:03 10:02 Hct MPV Lymph % (Auto) Lymph # (Auto) Lymphocytes % POC Sodium 130 L Sodium 129 L Chloride 92 L Carbon Dioxide 20 L Anion Gap 17.0 H POC Glucose 110 H POC Venous Lactate 2.8 H POC WB Ioniz Calcium 1.14 L Total Bilirubin 1.4 H Alkaline Phosphatase 136 H Total Protein 8.5 H Globulin 4.7 H Albumin/Globulin Ratio 0.8 L Urine Protein Urine Ketones Urine Mucus 11/30/21 10:00 Hct MPV 10.6 H Lymph % (Auto) Lymph # (Auto) Lymphocytes % 13 L POC Sodium Sodium Chloride Carbon Dioxide Anion Gap POC Glucose POC Venous Lactate POC WB Ioniz Calcium Total Bilirubin Alkaline Phosphatase Total Protein Globulin Albumin/Globulin Ratio Urine Protein Urine Ketones Urine Mucus Meds: Medications Acetaminophen (Acetaminophen 325 Mg Tablet) 650 mg PO Q6HP PRN; Protocol PRN Reason: Per Pain Protocol/Fever > 101 Last Admin: 12/01/21 22:37 Dose: 650 mg Documented by: Albuterol/Ipratropium (Ipratropium/Albuterol 3 Ml Ampul.Neb) 3 ml NEB Q6HRT [facility] Last Admin: 12/02/21 00:51 Dose: 3 ml Documented by: Docusate Sodium (Docusate Sodium 100 Mg Capsule) 100 mg PO BID [facility] Last Admin: 12/01/21 21:53 Dose: 100 mg Documented by: Enoxaparin Sodium (Enoxaparin 40 Mg/0.4 Ml Syringe) 40 mg SQ DAILY [facility] Last Admin: 12/01/21 08:09 Dose: 40 mg Documented by: Piperacillin Sod/Tazobactam (Sod 3.375 gm/ Dextrose) 50 mls @ 100 mls/hr IV Q6H [facility]; Protocol Last Infusion: 12/02/21 06:45 Dose: Infused Documented by: Lorazepam (Lorazepam 1 Mg Tablet) 1 mg PO TIDP PRN PRN Reason: ANXIETY/SEDATION Last Admin: 12/01/21 19:01 Dose: 1 mg Documented by: Ondansetron HCl (Ondansetron 4 Mg/2 Ml Vial) 4 mg IV Q6HP PRN PRN Reason: Nausea And Vomiting Oxycodone HCl (Oxycodone Hcl 5 Mg Tablet) 5 mg PO Q4HP PRN; Protocol PRN Reason: Per Pain Protocol Senna (Sennosides 1 Tablet) 2 tab PO HS [facility] Last Admin: 12/01/21 21:53 Dose: 2 tab Documented by: Sodium Chloride (0.9 % Sodium Chloride 10 Ml Syringe) 10 ml IV Q8 [facility] Last Admin: 12/02/21 06:10 Dose: 10 ml Documented by: A/P Narrative A/P Narrative: A: *PNA (RLL): *Sepsis: 2/2 above -With lactic acidosis -febrile o/n *Acute hypoxic respiratory failure: -trial on room air today *COPD: *Hyponatremia: improved *GERD: P: -Abx -s/p IVF -DuoNebs for COPD -IS/Acapella -Wean O2 as able -Follow-up sodium -PT/OT -ppx: Lovenox/home PPI Time Spent With Patient Time: Total time spent is greater than 50% in coordination of care (as documented) at patient's floor/unit and/or counseling patient: Total time spent with greater than 50% in coordination of care (as documented) at patient's floor/unit and/or counseling patient:: 25 - 35 minutes QUALITY VTE Deep Vein Thrombosis/Pulmonary Embolism Present on Admission: No
[2021-12-02 07:12] LABS: Blood Urea Nitrogen 11 mg/dL (8-23); Calcium 8.9 mg/dL (8.6-10.4); Carbon Dioxide 23 mmol/L (22-30); Chloride 98 mmol/L (96-108); Glomerular Filtration Rate 90; Glucose 96 mg/dL (70-105)
[2021-12-02] MEDS: ACETAMINOPHEN 325 MG TABLET PO PRN ×2 (07:57→14:10)
[2021-12-02] MEDS: DOCUSATE SODIUM 100 MG CAPSULE PO SCH (09:01)
[2021-12-02] MEDS: ENOXAPARIN 40 MG/0.4 ML SYRINGE SQ SCH (09:01)
--- NOTE | 2021-12-02 11:55 | Discharge Summary ---
Discharge Provider Provider Patient information: Note initiated : 12/02/21 at 11:54 am Service Date, if different from initiated Date: [] Patient: Erica Calloway 71 y/o F admitted on 11/30/21 for pain in left upper abd, recent dx w/ cancer.. Chief Complaint: [] Date of admission: 11/30/21 16:15 Discharge date: 12/02/21 Primary care physician: Gabo El DO Consults: 11/30/21 Consult to Physician [CONS] Stat Comment: Consulting Provider: Gerardo Forrester Reason For Exam: Physician to Consult Discharge Meds Discharge Medications Home Medications omeprazole magnesium 20 mg tablet,delayed release (Prilosec OTC) 20 mg PO QDAY tab 07/07/17 [History Confirmed 11/30/21 Last Taken Unknown] albuterol sulfate 90 mcg/actuation aerosol inhaler (ProAir HFA) 2 puff INHALATION .q4-6h PRN #8.5 g 04/27/21 [Rx Confirmed 11/30/21 Last Taken Unknown] melatonin 3 mg PO HS 10/03/21 [History Confirmed 11/30/21 Last Taken Unknown] omega-3 fatty acids [Fish Oil] 1 tab PO QDAY 10/03/21 [History Confirmed 11/30/21 Last Taken Unknown] benzonatate 100 mg capsule 100 mg PO BID PRN #15 cap 11/29/21 [Rx Confirmed 11/30/21 Last Taken Unknown] amoxicillin 875 mg-potassium clavulanate 125 mg tablet 1 tab PO BID #10 tab 12/02/21 [Rx Last Taken Unknown] COURSE Hospital Course Hospital course: History of present illness: Ms. Calloway is a 71 year old F with a past medical history significant for Sjogren's disease, insomnia, and possible obstructive lung disease who presents to the hospital with progressive dyspnea. The patient states that she has been feeling unwell since last Tuesday. She is normally quite active, lives in apartment, and does yoga. She had actually presented to the ER yesterday and was discharged home. She returns today in a worsening condition and was found to be febrile with temp of 103, tachycardic with a heart rate of 102, respirate of 27, blood pressure of 125/69. Her O2 sat was 97% on 2 L of supplemental O2. Labs revealed a normal white blood cell count of 9.8, her lactic acid was elevated at 2.8, sodium was 129, and her creatinine was 0.9. SARS COVID-19 was negative. Blood cultures are pending. CT chest reveals moderate consolidated infiltrates in the anterior and posterior segments of the right upper lobe and medial segment of the right middle lobe with moderate patchy infiltrate in the peripheral right lower lobe as well. Small right pleural effusion was noted. She was also found to have hilar lymphadenopathy. There is also mild underlying centrilobular emphysema. The hospital service was asked admit the patient for further management evaluation of her sepsis in the setting of community-acquired pneumonia. 12/01 Interval history: The patient is resting comfortably in bed, and doing well overall 12/02 Patient feeling little bit better. On room air today. No overnight events. Sodium better. Cough and shortness of breath present but improved. Patient remains afebrile today and doing well and wanting to go home. A: *PNA (RLL): *Sepsis: 2/2 above *Acute hypoxic respiratory failure: *COPD: *Hyponatremia: improved *GERD: P: -Abx Discharge diagnosis: Pneumonia with sepsis and acute hypoxic respiratory failure Secondary discharge diagnosis: OPD hyponatremia GERD Time Spent with Patient Time attestation: Total time spent providing and/or coordinating discharge services: Time spent: Greater than 30 minutes EXAM Constitutional Vitals: Temp Pulse Resp BP Pulse Ox 99.3 F H 91 H 22 148/85 95 12/02/21 07:57 12/02/21 07:37 12/02/21 07:37 12/02/21 07:37 12/02/21 07:37 Discharge Data Data Completed and Pending Labs on day of discharge: Labs from last 24 hours 12/02/21 05:48 Sodium 133 Potassium 3.6 Chloride 98 Carbon Dioxide 23 Anion Gap 12.0 BUN 11 Creatinine 0.6 GFR Calculation 90 Glucose 96 Calcium 8.9 Preliminary micro results at discharge 11/30/21 10:25 Blood Culture - Preliminary Blood 11/30/21 10:19 Blood Culture - Preliminary Blood Discharge Plan Patient/Caregiver Discharge Instructions Activity: increase activity as tolerated Diet: Regular Diet Prescriptions: New amoxicillin-pot clavulanate 875-125 mg tablet 1 tab PO BID Qty: 10 0RF Continued omeprazole magnesium [Prilosec OTC] 20 mg tablet,delayed release (DR/EC) 20 mg PO QDAY 0RF albuterol sulfate [ProAir HFA] 90 mcg/actuation HFA aerosol inhaler 2 puff inhalation .q4-6h PRN (Reason: cough, shortness of breath, wheezing) Qty: 8.5 0RF Rx Instructions: administer with spacer melatonin 3 mg PO HS 0RF omega-3 fatty acids [Fish Oil] 1 tab PO QDAY 0RF benzonatate 100 mg capsule 100 mg PO BID PRN (Reason: cough) Qty: 15 0RF Follow Up Plan Follow up with: Gabo El DO [Primary Care Provider] - Patient Disposition: Home, Self-Care Prognosis: Fair Overall status at discharge: patient is progressing back to baseline Discharge Orders: Discharge Order (Routine); Ordered 12/02/21 Ordered By: Dakota Gil QUALITY VTE Deep Vein Thrombosis/Pulmonary Embolism Present on Admission: No
== END 2021-12-02 14:20 | disposition home or self-care (01) | DRG 871 ==
LOC: ED 09:39 → MEDSUR 16:15
PROVIDERS: ADMIT Student in an Organized Health Care Education/Training Program; ATTEND Internal Medicine